=== PATIENT | female | born 2000 | race Caucasian/White ===

== ENCOUNTER 2023-07-18 13:53 | Emergency (ER) | payer MEDICAID, SELFPAY ==
[2023-07-18 13:55] VITALS: BP 144/75; PULSE 104; RESP 16; TEMP 37; O2SAT 99; BMI 23.5
--- NOTE | 2023-07-18 14:30 | ED_ITS ---
HPI - Wound/Laceration General Chief Complaint: Laceration/Wound Stated Complaint: L thumb lac Time Seen by Provider: 07/18/23 14:02 History of Present Illness HPI narrative: This 23-year-old female comes in with a laceration to her left thumb that occurred just prior to arrival. She was pulling on a piece of glass somehow when it shattered and caused a flap type laceration on the palmar aspect of her left thumb. She states that her tetanus status is up-to-date. Related Data Home Medications ?Medication ?Instructions ?Recorded ?Confirmed No Known Home Medications 07/18/23 07/18/23 Allergies Allergy/AdvReac Type Severity Reaction Status Date / Time No Known Drug Allergies Allergy Verified 07/18/23 13:57 Review of Systems Status of ROS: Reports: 10 or more systems reviewed and unremarkable except as noted in History and below Narrative: Constitutional: No fevers, no weight gain or loss. Eyes: No discharge. No vision changes. HENT: No congestion, no sore throat, no ear pain. Cardiovascular: No chest pain, no palpitations. Respiratory: No shortness of breath, no wheezes, no cough. Gastrointestinal: No abdominal pain, no vomiting, no diarrhea. Genitourinary: No dysuria, no hematuria. Musculoskeletal: Normal range of motion. Skin: No rashes, no pruritis. Neurological: No dizziness, weakness, sensory change, speech change. Endo/Heme/Allergies: No bruising or bleeding. No polydipsia. Pysch: no suicidality, no anxiety, no insomnia. All other systems reviewed and are negative. Exam Narrative: Exam Narrative: Constitutional: Well-developed, well-nourished, no acute distress. HEENT: Normocephalic, atraumatic. Neck: Normal range of motion. Nontender. Supple. Heart: Intact distal pulses. Lungs: No chest discomfort. No wheezes, rhonchi, or rales. Abdomen: Nontender. Back: Normal range of motion. Extremities: Normal range of motion. Irregular laceration on the palmar aspect of the left thumb which is more like a skin flap and may not be complete full- thickness wound. Skin: Intact. No rash. Warm. No erythema or pallor. Neurologic: No altered sensation. No weakness. Alert and oriented. Psychiatric: No suicidality. No anxiety or depression. No insomnia. Nursing notes and vitals signs are reviewed. Const: Vital Signs, click to edit/add: Vital Signs - 24 hr 07/18/23 13:55 Temperature 98.6 F Pulse Rate [Pulse Oximeter] 104 H Respiratory Rate 16 Blood Pressure [Ri ght Upper Arm] 144/75 H Pulse Oximetry 99 Oxygen Delivery Me thod Room Air Course Vital Signs Vital signs: Initial Vital Signs Temperature 98.6 F 07/18/23 13:55 Temperature Source Temporal Artery Scan 07/18/23 13:55 Pulse Rate 104 H 07/18/23 13:55 Respiratory Rate 16 07/18/23 13:55 Blood Pressure 144/75 H 07/18/23 13:55 Blood Pressure Mean 98 07/18/23 13:55 Blood Pressure Position Semi-Fowlers 07/18/23 13:55 Pulse Oximetry 99 07/18/23 13:55 Oxygen Delivery Method Room Air 07/18/23 13:55 Vital Signs Temperature 98.6 F 07/18/23 13:55 Pulse Rate 104 H 07/18/23 13:55 Respiratory Rate 16 07/18/23 13:55 Blood Pressure 144/75 H 07/18/23 13:55 Pulse Oximetry 99 07/18/23 13:55 Oxygen Delivery Method Room Air 07/18/23 13:55 Temperature 98.6 F 07/18/23 13:55 Pulse Rate 104 H 07/18/23 13:55 Respiratory Rate 16 07/18/23 13:55 Blood Pressure 144/75 H 07/18/23 13:55 Pulse Oximetry 99 07/18/23 13:55 Oxygen Delivery Method Room Air 07/18/23 13:55 MDM - Wound/Laceration MDM Narrative Medical decision making narrative: This patient has a laceration on her thumb as described above. The wound was cleansed and explored to its base. There is no sign of foreign object. Bleeding is no longer happening and the patient is a good candidate for Dermabond repair. This was applied with excellent results. Instructions regarding wound care were given. Discharge Plan Discharge Clinical Impression: Laceration Patient Disposition: Home, Self-Care Condition: Improved Additional Instructions: Keep wound clean and dry. Increase activity as tolerated. Follow up with MD re turn if worsening. Prescriptions: No Action No Known Home Medications Stand [facility] Info Inst[facility]
== END 2023-07-18 15:00 | disposition home or self-care (01) ==
LOC: ED 14:35
PROVIDERS: Emergency Provider Emergency Medicine Emergency Medical Services; PCP Family Medicine
DX: S61.012A Laceration without foreign body of left thumb without damage to nail, initial encounter (principal); W25.XXXA Contact with sharp glass, initial encounter
CPT/HCPCS: 12001; 99282; 99284